=== PATIENT | female | born 1995 | race African-American/Black ===

== ENCOUNTER 2020-03-04 17:07 | Emergency (ER) | payer MEDICAID, SELFPAY ==
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
[2020-03-04 17:16] VITALS: BP 144/91; PULSE 71; RESP 18; TEMP 36.8; O2SAT 98; BMI 31.6
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
[2020-03-04 19:55] VITALS: BP 117/73; PULSE 83; RESP 16; TEMP 36.6; O2SAT 99
== END 2020-03-04 21:54 | disposition home or self-care (01) ==
PROVIDERS: Emergency Provider Emergency Medicine
DX: S06.0X0A Concussion without loss of consciousness, initial encounter (principal); R22.0 Localized swelling, mass and lump, head; G44.309 Post-traumatic headache, unspecified, not intractable; Y04.8XXA Assault by other bodily force, initial encounter; Y93.9 Activity, unspecified; Y92.9 Unspecified place or not applicable; Y99.9 Unspecified external cause status
CPT/HCPCS: 70450; 70486; 99284

== ENCOUNTER 2020-08-06 16:50 | Emergency (ER) | payer MEDICAID, SELFPAY ==
[2020-08-06 17:11] VITALS: BP 120/65; PULSE 86; RESP 16; TEMP 36.6; O2SAT 99; BMI 34.9
--- NOTE | 2020-08-06 17:46 | ED_ITS ---
HPI - Skin/Abscess/Foreign Bdy General Chief complaint: Skin/Abscess/Foreign Body Stated complaint: rash, back pain Time Seen by Provider: 08/06/20 17:46 History of Present Illness HPI narrative: Patient complains of new onset of rash on her neck, the rash on her neck has been coming and going and is very itchy and she has had it multiple times before over past weeks, 2nd complaint is a different kind of rash that is causing small scabbed red spots on her legs and her right arm, they are not painful there is no fever no chills Related Data Previous Rx's Medication Instructions Recorded ibuprofen 800 mg PO Q8H PRN #14 tab 03/04/20 cetirizine 10 mg PO DAILY PRN #14 cap 08/06/20 hydrocortisone 1 appl TOPICAL BID PRN #30 g 08/06/20 ibuprofen 600 mg PO Q6H PRN #20 tab 08/06/20 mupirocin 1 appl TOPICAL BID 5 Days #22 g 08/06/20 Allergies Allergy/AdvReac Type Severity Reaction Status Date / Time No Known Allergies Allergy Verified 03/04/20 17:16 Review of Systems Review of Systems: Positive for skin rash Negatives are no fever no chills no dizziness no weakness no headache no neck pain no joint pains no swelling no difficulty breathing or swallowing no shortness of breath no swelling of the lips tongue or throat PMFSH Past Medical History Source: nursing notes reviewed Medical History No known health problems Social History Social History Smoking Status: Never smoker Smoked in Last 30 Days: No Substance Use Type: Marijuana Any prior treatment program specific to substance use: No Advance Directives: No Advance Directives Information Provided: No Physical Exam Vital Signs: Vital Signs: Last Vital Signs Temp 97.9 F 08/06/20 17:11 Pulse 86 08/06/20 17:11 Resp 16 08/06/20 17:11 BP 120/65 08/06/20 17:11 Pulse Ox 99 08/06/20 17:11 Body Mass Index 34.9 General appearance is no distress The eyes have no discharge or redness The neck has been ordered cardial appearing large blotchy red rash at the base o f the neck, there is no neck swelling, the pharynx is clear with out swelling of lips tongue uvula or pharynx The chest is clear to auscultation bilaterally with full symmetric equal breath sounds The heart rate and rhythm regular no murmur Abdomen soft nontender The back had lower lumbar tenderness bilaterally, paraspinal, no focal bony tenderness, pain is easily reproduced with bending and movement, there is no CVA tenderness, skin is normal in appearance Extremities full range of motion x4 Skin there are small less than dime-sized scabby areas on the left thigh and the right arm with no surrounding erythema nontender no ulceration no wound Course Course Course Narrative: Rashes have 2 different appearances, then rash on the neck looks like hives and description coming and going with lots of itching is consistent with hives the other small excoriated scabby areas on the left thigh and the right arm do not look like hives and they may be aftermath of impetigo so they will be treated with both hydrocortisone and mupirocin creams, Claritin for possible order cardial reaction The back pain is musculoskeletal and recommend she seek physical therapy or chiropractor Discharge Plan Discharge Clinical Impression: Rash, skin Patient Disposition: Home, Self-Care Additional Instructions: It looks like you have 2 different kinds of rash the rash on her neck looks like hives coming and going The small scabbed areas on her legs and arm looked like it might be impetigo so were treating for that with antibiotic cream Follow with primary doctor for further evaluation if my treatment does not cure the rashes For the back Motrin as needed and follow with primary doctor for referral for physical therapy and chiropractor Prescriptions: New mupirocin 2 % ointment 1 appl topical BID 5 Days Qty: 22 RF: 0 ibuprofen 600 mg tablet 600 mg PO Q6H PRN (Reason: pain) Qty: 20 RF: 0 cetirizine 10 mg capsule 10 mg PO DAILY PRN (Reason: Rash and itch) Qty: 14 RF: 0 hydrocortisone 2.5 % cream 1 appl topical BID PRN (Reason: rash) Qty: 30 RF: 0 No Action ibuprofen 800 mg tablet 800 mg PO Q8H PRN (Reason: pain) Qty: 14 RF: 0 Stand Alone Forms: Work/School Release
[2020-08-06] MEDS: Loratadine 10 MG TABLET PO (18:02)
== END 2020-08-06 18:11 | disposition home or self-care (01) ==
PROVIDERS: Emergency Provider Emergency Medicine
DX: R21 Rash and other nonspecific skin eruption (principal); F12.90 Cannabis use, unspecified, uncomplicated; Z79.899 Other long term (current) drug therapy
CPT/HCPCS: 99284

== ENCOUNTER 2022-04-24 02:59 | Emergency (ER) | payer MEDICAID, SELFPAY ==
[2022-04-24 03:10] VITALS: BP 120/76; BP 141/89; PULSE 70; PULSE 72; RESP 18; TEMP 36.8; O2SAT 100; BMI 33.3
--- NOTE | 2022-04-24 03:15 | ECG_ITS ---
Test Reason : CHEST PAIN Blood Pressure : / mmHG Vent. Rate : 080 BPM Atrial Rate : 080 BPM P-R Int : 138 ms QRS Dur : 082 ms QT Int : 386 ms P-R-T Axes : 058 044 043 degrees QTc Int : 445 ms Normal sinus rhythm with sinus arrhythmia Normal ECG No previous ECGs available Referred By: Generic ED Physician Electronically Signed By:KAUR DENSON MD
--- OUTSIDE RECORDS SUMMARY | 2022-04-24 03:36 | XMS_ITS | Continuity of Care Document ---
:1995 Author Organization [facility] Address [address] [place] [id number]- Care Team Providers Name Role Phone Not on Staff, PCP Primary Care Physician Unavailable [place] [facility] [place] - 02/24/[address] [address]- [facility] Attending Physician: Not on Staff, Attending MD Referring Physician: Karlie Kraus MD Allergies, Adverse Reactions, Alerts Substance Reaction Severity Status NKA Active Immunizations Given and Recorded Vaccine Date Status Refusal Reason tetanus/diphtheria/pertussis, acel(Tdap) 12/21/18 Given Not Given Vaccine Date Status Refusal Reason influenza virus vaccine, inactivated 03/08/19 Not Given Parent Or Guardian Refuses Medications Colace Clear 50 mg oral capsule 1 capsule = 50 mg, By Mouth, 2 times a day, # 60 capsule, 0 Refills, Maintenance, 03/10/19 6:14:15 EDT Start Date: 03/10/19 Status: OrderedColace sodium 100 mg oral capsule 100 mg, 1, capsule, By Mouth, 2 times a day, PRN, # 60 capsule, Refills 0, Tot. Refills 0, Maintenance, for constipation, 11/16/18 11:51:05 EDT, Route to Pharmacy Electronically, [id number], [facility]/pharmacy #[id number] Start Date: 11/16/18 Status: Orderedestradiol 0.1 mg/g vaginal cream = 1 Gm, Vaginally, Daily at bedtime, use until vaginal laceration healed, # 42.5 Gm, 0 Refills, Maintenance, 04/17/19 14:18:33 EST Start Date: 04/17/19 Status: Orderedferrous gluconate 324 mg (37.5 mg elemental iron) oral tablet 1 tablet = 324 mg, By Mouth, Daily, # 30 tablet, 0 Refills, Maintenance, 03/10/19 6:13:23 EDT, Tablet Start Date: 03/10/19 Status: OrderedOrtho Micronor 0.35 mg oral tablet 1 tablet = 0.35 mg, By Mouth, Daily, # 60 tablet, 0 Refills, Maintenance, 03/10/19 6:11:47 EDT, Tablet Start Date: 03/10/19 Status: OrderedPrenatal Multivitamins By Mouth, Daily, 0 Refills, Maintenance, 09/07/18 16:48:13 EDT Start Date: 09/07/18 Status: Orderedwitch tasha 50% topical pad 1 each, Topically, 4 times a day, # 48 each, 0 Refills, Maintenance, 04/17/19 14:20:55 EST, 1 each Topically 4 times a day Start Date: 04/17/19 Status: Ordered Problem List Condition Effective Dates Status Health Status Informant Acute low back pain with Active sciatica(Confirmed) 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 [place] Social History Social History Type Response Smoking Status Never (less than 100 in life time) entered on: 08/30/18 Sex
--- OUTSIDE RECORDS SUMMARY | 2022-04-24 03:36 | XMS_ITS | Continuity of Care Document ---
:1995 Author Organization [facility] Address [address] [place] [id number]- Care Team Providers Name Role Phone Not on Staff, PCP Primary Care Physician Unavailable Encounter [facility] Date(s): 05/03/19 - 06/09/[address] [address]- [facility] Attending Physician: Not on Staff, Attending MD Allergies, Adverse Reactions, Alerts Substance Reaction [...] 11/16/18 11:51:05 EDT, Route to Pharmacy Electronically, [id number], [facility]/pharmacy #[id number] Start Date: 11/16/18 Status: Orderedestradiol 0.1 [...] Active Maternal varicella, Active non-immune(Confirmed) 1Pt of [facility] Social History Social History Type Response Smoking Status Never (less than 100 in life time) entered on: 08/30/18 Sex
--- OUTSIDE RECORDS SUMMARY | 2022-04-24 03:36 | XMS_ITS | Continuity of Care Document ---
:1995 Author Organization [facility] Address [address] [place] [id number]- Care Team Providers Name Role Phone Not on Staff, PCP Primary Care Physician Unavailable [place] [facility] [place] - 02/24/[address] [address]- [facility] Attending Physician: Deepika Dejesus Admitting Physician: Deepika Dejesus Referring Physician: Deepika Dejesus Allergies, Adverse Reactions, Alerts Substance Reaction Severity [...] 11/16/18 11:51:05 EDT, Route to Pharmacy Electronically, [id number], [facility]/pharmacy #[id number] Start Date: 11/16/18 Status: Orderedestradiol 0.1 [...] Active Maternal varicella, Active non-immune(Confirmed) 1Pt of [facility] Neu[facility] Social History Social History Type Response Smoking Status Never (less than 100 in life time) entered on: 08/30/18 Sex
--- OUTSIDE RECORDS SUMMARY | 2022-04-24 03:36 | XMS_ITS | Continuity of Care Document ---
:1995 Author Organization [facility] Address [address] [place] [id number]- Care Team Providers Name Role Phone Not on Staff, PCP Primary Care Physician Unavailable [place] [facility] [place]/[address] [address]- [facility] Attending Physician: Not on Staff, Attending MD [...] 11/16/18 11:51:05 EDT, Route to Pharmacy Electronically, [id number], [facility]/pharmacy #[id number] Start Date: 11/16/18 Status: Orderedestradiol 0.1 [...] Active Maternal varicella, Active non-immune(Confirmed) 1[place] [facility] [place] Social History Social History Type Response Smoking Status Never (less than 100 in life time) entered on: 08/30/18 Sex
--- OUTSIDE RECORDS SUMMARY | 2022-04-24 03:36 | XMS_ITS | Continuity of Care Document ---
:1995 Author Organization [facility] Address [address] [place] [id number]- Care Team Providers Name Role Phone Not on Staff, PCP Primary Care Physician Unavailable Encounter [facility] [place] Date(s): 05/18/19 - 05/28/[address] [address]- [facility] Attending Physician: Deepika Dejesus Admitting Physician: Deepika [...] 11/16/18 11:51:05 EDT, Route to Pharmacy Electronically, [id number], [facility]/pharmacy #[id number] Start Date: 11/16/18 Status: Orderedestradiol 0.1 [...]
--- OUTSIDE RECORDS SUMMARY | 2022-04-24 03:37 | XMS_ITS | Continuity of Care Document ---
:1995 Author Organization [facility] Address [address] [place] [id number]- Care Team Providers Name Role Phone Not on Staff, PCP Primary Care Physician Unavailable Encounter [facility] Date(s): 04/17/19 - 06/17/[address] [address]- [facility] Attending Physician: Not on Staff, Attending MD Referring Physician: Iker Conrad MD Allergies, Adverse Reactions, Alerts Substance Reaction [...] 11/16/18 11:51:05 EDT, Route to Pharmacy Electronically, [id number], [facility]/pharmacy #[id number] Start Date: 11/16/18 Status: Orderedestradiol [...] Active Maternal varicella, Active non-immune(Confirmed) [place] [facility] [place] Social History Social History Type Response Smoking Status Never (less than 100 in life time) entered on: 08/30/18 Sex
--- OUTSIDE RECORDS SUMMARY | 2022-04-24 03:37 | XMS_ITS | Continuity of Care Document ---
:1995 Author Organization [facility] Address [address] [place] [id number]- Care Team Providers Name Role Phone Not on Staff, PCP Primary Care Physician Unavailable Encounter [facility] Date(s): 04/25/19 - 06/01/[address] [address]- [facility] Attending Physician: Not on Staff, [...] 11/16/18 11:51:05 EDT, Route to Pharmacy Electronically, [id number], [facility]/pharmacy #[id number] Start Date: 11/16/18 Status: Orderedestradiol [...] Active Maternal varicella, Active non-immune(Confirmed) 1Pt of [facility] [place] [facility] Social History Social History Type Response Smoking Status Never (less than 100 in life time) entered on: 08/30/18 Sex
--- NOTE | 2022-04-24 03:39 | ED.CHESTPAIN ---
HPI - Chest Pain General Chief Complaint: Chest Pain Stated Complaint: PANIC ATTACK PER EMS Time Seen by Provider: 04/24/22 03:35 Source: patient Mode of arrival: ambulatory Limitations: no limitations History of Present Illness HPI narrative: History of anxiety/panic attack woke up from her sleep with chest pain and anxiety with hyperventilation patient friend who was 28 years old of heart condition patient feels same at this time and scared patient denies any substance abuse no known coronary artery disease pain is mid chest sharp in character get worse with taking deep breaths no leg swelling no calf pain no shortness of breath Related Data Previous Rx's Medication Instructions Recorded ibuprofen 800 mg tablet 800 mg PO Q8H PRN pain #14 tabs 03/04/20 cetirizine 10 mg capsule 10 mg PO DAILY PRN Rash and itch 08/06/20 #14 caps hydrocortisone 2.5 % topical cream 1 appl topical BID PRN rash #30 08/06/20 grams ibuprofen 600 mg tablet 600 mg PO Q6H PRN pain #20 tabs 08/06/20 mupirocin 2 % topical ointment 1 appl topical BID 5 days #22 grams 08/06/20 hydroxyzine HCl 25 mg tablet 25 mg PO Q6-8H PRN anxiety #20 tabs 04/24/22 Allergies Allergy/AdvReac Type Severity Reaction Status Date / Time No Known Allergies Allergy Verified 03/04/20 17:16 Review of Systems Review of Systems: Yes all other systems are reviewed and are negative [facility] Past Medical History Medical History No known health problems Social History Social History Substance Use Type: Marijuana Advance Directives: No Advance Directives Information Provided: No Physical Exam Vital Signs: Vital Signs: Last Vital Signs Temp 98.2 F 04/24/22 03:10 Pulse 70 04/24/22 03:10 Resp 18 04/24/22 03:10 BP 141/89 H 04/24/22 03:10 Pulse Ox 100 04/24/22 03:10 O2 Del Method 04/24/22 03:10 BMI result Body Mass Index 33.3 Appearance: Alert. Oriented X3. Anxious, tearful ENT: Pharynx normal. Oral Mucosa moist Neck: Normal inspection. Neck supple. CVS: Normal heart rate and rhythm. Pulses normal. Respiratory: No respiratory distress. Equal air entry bilateral, no wheezing/rales/rhonchi Abdomen: Soft and nontender. Bowel sounds are present, Skin: Skin warm and dry. Normal skin color. Normal skin turgor. Extremities: No lower extremity edema. No calf tenderness Neuro: Oriented X 3. No motor deficit. Medications Administered Discontinued Medications Generic Name Dose Route Start Last Admin Trade Name Jay PRN Reason Stop Dose Admin Lorazepam 1 mg 04/24/22 03:39 04/24/22 03:57 Lorazepam 1 Mg Tablet PO 04/24/22 03:40 1 mg ONCE ONE Administration MDM - Chest Pain MDM Narrative Medical decision making narrative: Patient with anxiety atypical chest pain heart score of 0 troponin negative EKG with any ischemic changes D-dimer negative for PE will discharge patient Differential Diagnosis Differential diagnosis: Likely pneumothorax, atypical chest pain and costochondritis Lab Data Attestation: I reviewed the patient's lab results. Result diagrams: 04/24/22 03:52 04/24/22 03:52 Labs: Lab Results 04/24/22 04/24/22 04/24/22 Range/Units 03:51 03:51 03:52 WBC 10.2 (4.8-10.8) X10*3/uL RBC 4.25 (4.20-5.50) X10*6/uL Hgb 13.2 (12.0-16.0) g/dl Hct 38.1 (37.0-47.0) % MCV 89.6 (80.0-98.0) fL MCH 31.1 (27.0-33.0) pg MCHC 34.6 (31.0-35.0) g/dl RDW 11.7 (11.0-16.0) % Plt Count 273 (160-400) X10*3/uL MPV 8.8 L (9.4-12.3) fL Immature Gran % (Auto) 0.3 (0.0-0.4) % Neut % (Auto) 66.6 (45-73) % Lymph % (Auto) 23.6 (20-40) % [place] % (Auto) 7.3 (2-11) % Eos % (Auto) 1.9 (0-4) % Baso % (Auto) 0.3 (0-2) % Lymph # (Auto) 2.4 (1.2-4.9) X10*3/uL [place] # (Auto) 0.7 (0.1-1.2) X10*3/uL Eos # (Auto) 0.2 (0.0-0.4) X10*3/uL Baso # (Auto) 0.0 (0.0-0.2) X10*3/uL Abs Immat Gran (auto) 0.03 (0.00-0.03) X10*3/uL Absolute Neuts (auto) 6.8 (2.0-8.3) x10*3/uL Absolute Nucleated RBC 0.000 (0.0-0.012) X10*3/uL Nucleated RBC % (auto) 0.0 (0.0-0.2) /100WBC D-Dimer High Sensitivty 171 NG/ML Sodium (135-145) mmol/L Potassium (3.3-5.1) mmol/L Chloride (96-108) mmol/L Carbon Dioxide (22-29) mmol/L Anion Gap (12-20) BUN (9-16) mg/dL Creatinine (0.5-1.4) mg/dL Estim Creat Clear Calc Estimated GFR Random Glucose (60-115) mg/dL Calcium (8.4-10.2) mg/dL Troponin I High Sens < 3.5 (<3.5-17.0) ng/L 04/24/22 Range/Units 03:52 WBC (4.8-10.8) X10*3/uL RBC (4.20-5.50) X10*6/uL Hgb (12.0-16.0) g/dl Hct (37.0-47.0) % MCV (80.0-98.0) fL MCH (27.0-33.0) pg MCHC (31.0-35.0) g/dl RDW (11.0-16.0) % Plt Count (160-400) X10*3/uL MPV (9.4-12.3) fL Immature Gran % (Auto) (0.0-0.4) % Neut % (Auto) (45-73) % Lymph % (Auto) (20-40) % [place] % (Auto) (2-11) % Eos % (Auto) (0-4) % Baso % (Auto) (0-2) % Lymph # (Auto) (1.2-4.9) X10*3/uL [place] # (Auto) (0.1-1.2) X10*3/uL Eos # (Auto) (0.0-0.4) X10*3/uL Baso # (Auto) (0.0-0.2) X10*3/uL Abs Immat Gran (auto) (0.00-0.03) X10*3/uL Absolute Neuts (auto) (2.0-8.3) x10*3/uL Absolute Nucleated RBC (0.0-0.012) X10*3/uL Nucleated RBC % (auto) (0.0-0.2) /100WBC D-Dimer High Sensitivty NG/ML Sodium 141 (135-145) mmol/L Potassium 3.7 (3.3-5.1) mmol/L Chloride 107 (96-108) mmol/L Carbon Dioxide 24 (22-29) mmol/L Anion Gap 14 (12-20) BUN 12 (9-16) mg/dL Creatinine 0.80 (0.5-1.4) mg/dL Estim Creat Clear Calc 120.6 Estimated GFR > 60 Random Glucose 89 (60-115) mg/dL Calcium 9.6 (8.4-10.2) mg/dL Troponin I High Sens (<3.5-17.0) ng/L ECG Data ECG #1: Attestation: I personally reviewed and interpreted this ECG as follows: Interpretation: Normal sinus rhythm heart rate 80 beats per minute normal interval normal axis no acute ST-T changes no acute skin impression normal EKG Discharge Plan Discharge Clinical Impression: Atypical chest pain, Anxiety Patient Disposition: Home, Self-Care Instructions: Noncardiac Chest Pain (ED), Anxiety (ED) Additional Instructions: Rest at home Medication for anxiety as prescribed Follow with PCP Prescriptions: New hydroxyzine HCl 25 mg tablet 25 mg PO Q6-8H PRN (Reason: anxiety) Qty: 20 0RF No Action ibuprofen 800 mg tablet 800 mg PO Q8H PRN (Reason: pain) Qty: 14 0RF mupirocin 2 % ointment 1 appl topical BID 5 Days Qty: 22 0RF ibuprofen 600 mg tablet 600 mg PO Q6H PRN (Reason: pain) Qty: 20 0RF cetirizine 10 mg capsule 10 mg PO DAILY PRN (Reason: Rash and itch) Qty: 14 0RF hydrocortisone 2.5 % cream 1 appl topical BID PRN (Reason: rash) Qty: 30 0RF Interventions: ED Discharge Assessment Last Done: 04/24/22 05:25 Discharge Date/Time: 04/24/22 05:26
[2022-04-24 03:57] LABS: Basophils Percent Auto 0.3 % (0-2); Eosinophils Absolute Auto 0.2 X10*3/uL (0.0-0.4); Eosinophils Percent Auto 1.9 % (0-4); Hematocrit 38.1 % (37.0-47.0); Hemoglobin 13.2 g/dl (12.0-16.0); Imm Gran Abs Auto 0.03 X10*3/uL (0.00-0.03); Imm Gran Pct Auto 0.3 % (0.0-0.4); Lymphocytes Absolute Auto 2.4 X10*3/uL (1.2-4.9); Lymphocytes Percent Auto 23.6 % (20-40); MANUAL DIFF FLAG NO; Mean Corpuscular HGB Conc 34.6 g/dl (31.0-35.0); Mean Corpuscular Hemoglobin 31.1 pg (27.0-33.0); Mean Corpuscular Volume 89.6 fL (80.0-98.0); Mean Platelet Volume 8.8 fL (9.4-12.3); Monocytes Absolute Auto 0.7 X10*3/uL (0.1-1.2); Monocytes Percent Auto 7.3 % (2-11); Neutrophils Absolute Auto 6.8 x10*3/uL (2.0-8.3); Neutrophils Percent Auto 66.6 % (45-73); Platelet Count 273 X10*3/uL (160-400); Red Blood Count 4.25 X10*6/uL (4.20-5.50); Red Cell Distribution Width 11.7 % (11.0-16.0); White Blood Count 10.2 X10*3/uL (4.8-10.8)
[2022-04-24] MEDS: LORazepam 1 MG TABLET PO (03:57)
--- NOTE | 2022-04-24 03:58 | PC.NURSE ---
pt medicated according to MAR. pt's significant other at bedside at this time
[2022-04-24 04:14] LABS: Anion Gap 14 (12-20); Blood Urea Nitrogen 12 mg/dL (9-16); Calcium 9.6 mg/dL (8.4-10.2); Carbon Dioxide 24 mmol/L (22-29); Chloride 107 mmol/L (96-108); Creatinine Clr Calc Pharmacy 120.6; Estimated Glomerular Filt Rate > 60; Glucose Random 89 mg/dL (60-115); Potassium 3.7 mmol/L (3.3-5.1); Sodium 141 mmol/L (135-145)
[2022-04-24 04:21] LABS: Troponin-I High Sensitivity < 3.5 ng/L (<3.5-17.0)
[2022-04-24 04:23] LABS: D Dimer High Sensitivity 171 NG/ML
== END 2022-04-24 05:26 | disposition home or self-care (01) ==
PROVIDERS: Emergency Provider Internal Medicine
DX: R07.89 Other chest pain (principal); F41.9 Anxiety disorder, unspecified
CPT/HCPCS: 36415; 80048; 84484; 85025; 85379; 93005; 99283

== ENCOUNTER 2024-04-10 11:31 | Emergency (ER) | payer MEDICAID, SELFPAY ==
[2024-04-10 12:02] VITALS: BP 121/82; PULSE 75; RESP 20; TEMP 37.1; O2SAT 100; BMI 35.3
--- NOTE | 2024-04-10 12:05 | ED.GENADULT ---
HPI - General Adult General Chief complaint: Nausea/Vomiting/Diarrhea Stated complaint: migraine, food poisoning Source: patient Mode of arrival: ambulatory Limitations: no limitations History of Present Illness ED Provider: Lorelei Hartman PA-C HPI narrative: Patient is a 28 year old assigned female at with no reported medical history presenting to the emergency department today with nausea, vomiting, and a migraine. Patient states that she had some left over [place] food that contained fish and she is unsure if it was refrigerated properly or not. Patient states after she ingested that food - she began to have a migraine headache with nausea and vomiting. Patient denies any dizziness, lightheadedness, abdominal pain, fever, chills, blurry vision, double vision, loss of vision, chest pain, difficulty breathing, shortness of breath, back pain, night sweats, pain with urination, increased urinary frequency, increased urinary urgency, blood in her urine or stool, syncope or a near syncopal episode, recent trauma or falls, bowel incontinence, bladder incontinence, or any other complaints at this time. Relieving factors: none Exacerbating factors: none Associated symptoms: headaches and nausea/vomiting Treatments prior to arrival: none Related Data Previous Rx's ?Medication ?Instructions ?Recorded ibuprofen 800 mg tablet 800 mg PO Q8H PRN pain #14 tabs 03/04/20 cetirizine 10 mg capsule 10 mg PO DAILY PRN Rash and itch 08/06/20 #14 caps hydrocortisone 2.5 % topical cream 1 appl topical BID PRN rash #30 08/06/20 grams ibuprofen 600 mg tablet 600 mg PO Q6H PRN pain #20 tabs 08/06/20 mupirocin 2 % topical ointment 1 appl topical BID 5 days #22 grams 08/06/20 hydroxyzine HCl 25 mg tablet 25 mg PO Q6-8H PRN anxiety #20 tabs 04/24/22 Allergies Allergy/AdvReac Type Severity Reaction Status Date / Time No Known Allergies Allergy Verified 04/10/24 12:05 Review of Systems Constitutional: Constitutional: Reports no additional constitutional complaints, Denies chills, Denies fever(s), Reports headache(s) and Denies night sweats Eyes: Eyes: Reports no additional eye complaints, Denies blurry vision, Denies change in vision, Denies diplopia, Denies eye discharge, Denies loss of vision and Denies eye pain ENT: Denies dizziness and Reports headache(s) Cardiovascular: Cardiovascular: Reports no additional cardiovascular complaints, Denies chest pain, Denies lightheadedness, Denies Loss of Consciousness and Denies dyspnea Respiratory: Respiratory: Reports no additional respiratory complaints and Denies dyspnea Gastrointestinal: Gastrointestinal: Reports no additional gastrointestinal complaints, Denies abdominal pain, Denies melena, Denies hematochezia, Denies change in bowel habits, Denies change in stool character, Reports nausea and Reports vomiting Genitourinary: Genitourinary: Denies hematuria, Denies urinary frequency, Denies dysuria, Denies urinary incontinence, Denies urinary hesitancy and Denies urinary urgency Musculoskeletal: Musculoskeletal: Reports no additional musculoskeletal complaints, Denies numbness and Denies tingling Neurologic: Denies dizziness, Reports headache(s), Denies loss of vision, Denies numbness and Denies tingling Psychiatric: Psychiatric: Reports no additional psychiatric complaints Endocrine: Endocrine: Reports no additional endocrine complaints Hematologic/Lymphatic: Hematologic/Lymphatic: Reports no additional hematologic/lymphatic complaints Allergic/Immunologic: Allergic/Immunologic: Reports no additional allergic/immunologic complaints PMFSH Past Medical History Attestation statement: The following information was validated with the patient. Source: old records reviewed and nursing notes reviewed Medical History No known health problems Social History Social History Substance Use Type: Marijuana Advance Directives: No Advance Directives Information Provided: No Do you have a plan to hurt others: No Plan Physical Exam ED Vital Signs: Vital Signs - 24 hr 04/10/24 12:02 Temperature 98.8 F Pulse Rate 75 Respiratory Rate 20 Blood Pressure 121/82 Pulse Oximetry 100 Oxygen Delivery Method Room Air BMI result Body Mass Index 35.3 Const General: cooperative, no acute distress, alert and awake Nutritional Appearance: well nourished Orientation/consciousness: patient oriented x3 Limitations: no limitations HENMT Head: Yes normal to inspection and Yes atraumatic Ears: hearing grossly normal bilaterally and external ears normal General nose exam: Normal external nose present, no nasal discharge noted and no epistaxis Face and sinus: Yes normal facial exam, No abrasion and No laceration Mouth: Normal oral and palatal mucosa present, no drooling and no muffled voice Eyes General: appearance normal, both eyes and all related structures Periorbital: periorbital findings normal Eyelids: Yes eyelids normal Conjunctivae: conjunctivae normal Pupils: Equal, round and reactive pupils present EOM: EOMs intact bilaterally Neck Neck: Yes normal visual inspection, Yes full ROM and Yes no lymphadenopathy Chest Chest palpation & inspection: normal inspection of the chest Resp Effort & Inspection: normal respiratory effort and able to speak in complete sentences GI Inspection: Yes normal to inspection Neuro General: patient oriented x3 and moves all extremities Cranial nerves: Yes Equal, round and reactive pupils present Cognition (Neuro): normal cognition Extrem General: Yes normal to inspection, Yes full ROM and Yes capillary refill normal Psych Appearance: grossly normal Mental Status: mental status grossly normal Affect: normal affect Attitude: cooperative Thought process: Normal thought process present Thought content: Normal thought content present Insight: Good insight present (Psych) Course Course Course Narrative: RME performed by Lorelei Hartman PA-C. Patient is a 28 year old assigned female at presenting to the emergency department with nausea, vomiting, and a headache. Patient states she ate leftover [place] food that had fish and is not sure if it was refrigerated or not. Detailed physical exam and review of systems are deferred to the plate mill mill hand. Labs ordered. Patient placed back in the waiting room pending room availability and results. Medical Decision Making Medical Decision Making MDM Narrative: Patient is a 28 year old assigned female at with no reported medical history presenting to the emergency department today with headache, nausea, and vomiting. Patient's limited physical exam performed in triage was unremarkable. Patient's blood work was showed a minimal elevation in the WBC count but were otherwise unremarkable. Patient left the department without completing treatment. Patient left the department before myself or any of the other emergency department clinicians could explain to or review with the patient; physical exam findings, test results, need or lack there of for additional testing, need or lack there of for a procedure to be performed, need or lack there of for hospital admission / transfer, need or lack there of for prescription medication, treatment options, or a treatment plan. Differential Diagnosis Differential Diagnoses: The differential diagnosis associated with the presentation includes Food poisoning Enteritis Nausea Vomiting Migraine headache Admission/Observation Consideration of admission/observation: Escalation of care including admission/observation considered Patient would have been admitted to the hospital had she completed her work up and it had any findings where hospital admission was appropriate, her clinical presentation warranted hospital admission, had myself or any other emergency slot machine department floorperson had the ability to discuss need or lack there of for hospital admission, and the patient hadn't left the department without completing treatment. Lab Data [facility] Lab Attestation statement: I reviewed the patient's lab results. My interpretation of these results are in the [facility] Rationale portion of this note. 04/10/24 12:30 04/10/24 12:30 Labs: Lab Results 04/10/24 Range/Units 12:30 WBC 11.3 H (4.8-10.8) X10*3/uL RBC 4.50 (4.20-5.50) X10*6/uL Hgb 13.9 (12.0-16.0) g/dl Hct 41.1 (37.0-47.0) % MCV 91.3 (80.0-98.0) fL MCH 30.9 (27.0-33.0) pg MCHC 33.8 (31.0-35.0) g/dl RDW 12.2 (11.0-16.0) % Plt Count 295 (160-400) X10*3/uL MPV 8.8 L (9.4-12.3) fL Immature Gran % (Auto) 0.5 H (0.0-0.4) % Neut % (Auto) 71.2 (45-73) % Lymph % (Auto) 19.5 L (20-40) % [place] % (Auto) 6.6 (2-11) % Eos % (Auto) 1.9 (0-4) % Baso % (Auto) 0.3 (0-2) % Lymph # (Auto) 2.2 (1.2-4.9) X10*3/uL [place] # (Auto) 0.8 (0.1-1.2) X10*3/uL Eos # (Auto) 0.2 (0.0-0.4) X10*3/uL Baso # (Auto) 0.0 (0.0-0.2) X10*3/uL Abs Immat Gran (auto) 0.06 H (0.00-0.03) X10*3/uL Absolute Neuts (auto) 8.1 (2.0-8.3) x10*3/uL Absolute Nucleated RBC 0.000 (0.0-0.012) X10*3/uL Nucleated RBC % (auto) 0.0 (0.0-0.2) /100WBC Sodium 140 (135-145) mmol/L Potassium 3.8 (3.3-5.1) mmol/L Chloride 107 (96-108) mmol/L Carbon Dioxide 25 (22-29) mmol/L Anion Gap 12 (12-20) BUN 10 (9-16) mg/dL Creatinine 0.75 (0.5-1.4) mg/dL Estim Creat Clear Calc 130.4 Estimated GFR > 60 Random Glucose 110 (60-115) mg/dL Calcium 9.2 (8.4-10.2) mg/dL Magnesium 1.8 (1.6-2.6) mg/dL Total Bilirubin 0.3 (0.0-1.0) mg/dL AST 17 (5-31) U/L ALT 11 (0-31) U/L Alkaline Phosphatase 94 (39-117) U/L Total Protein 7.6 (6.5-8.0) g/dL Albumin 3.9 (3.5-5.0) g/dL Beta HCG, Quant < 2 mIU/mL Influenza Type A (PCR) NEGATIVE (Negative) Influenza Type B (PCR) NEGATIVE (Negative) RSV RNA Qual (PCR) NEGATIVE (Negative) SARS-CoV-2 RNA (RT-PCR) NEGATIVE (Negative) Discharge Plan Discharge Clinical Impression: Nausea & vomiting, Headache Patient Disposition: Left W/O Completing Treatment Prescriptions: No Action ibuprofen 800 mg tablet 800 mg PO Q8H PRN (Reason: pain) Qty: 14 0RF mupirocin 2 % ointment 1 appl topical BID 5 Days Qty: 22 0RF ibuprofen 600 mg tablet 600 mg PO Q6H PRN (Reason: pain) Qty: 20 0RF cetirizine 10 mg capsule 10 mg PO DAILY PRN (Reason: Rash and itch) Qty: 14 0RF hydrocortisone 2.5 % cream 1 appl topical BID PRN (Reason: rash) Qty: 30 0RF hydroxyzine HCl 25 mg tablet 25 mg PO Q6-8H PRN (Reason: anxiety) Qty: 20 0RF Discharge Date/Time: 04/10/24 19:08
[2024-04-10 12:36] LABS: MANUAL DIFF FLAG NO
[2024-04-10 12:38] LABS: Basophils Percent Auto 0.3 % (0-2); Eosinophils Absolute Auto 0.2 X10*3/uL (0.0-0.4); Eosinophils Percent Auto 1.9 % (0-4); Hematocrit 41.1 % (37.0-47.0); Hemoglobin 13.9 g/dl (12.0-16.0); Imm Gran Abs Auto 0.06 X10*3/uL (0.00-0.03); Imm Gran Pct Auto 0.5 % (0.0-0.4); Lymphocytes Absolute Auto 2.2 X10*3/uL (1.2-4.9); Lymphocytes Percent Auto 19.5 % (20-40); Mean Corpuscular HGB Conc 33.8 g/dl (31.0-35.0); Mean Corpuscular Hemoglobin 30.9 pg (27.0-33.0); Mean Corpuscular Volume 91.3 fL (80.0-98.0); Mean Platelet Volume 8.8 fL (9.4-12.3); Monocytes Absolute Auto 0.8 X10*3/uL (0.1-1.2); Monocytes Percent Auto 6.6 % (2-11); Neutrophils Absolute Auto 8.1 x10*3/uL (2.0-8.3); Neutrophils Percent Auto 71.2 % (45-73); Platelet Count 295 X10*3/uL (160-400); Red Cell Distribution Width 12.2 % (11.0-16.0); White Blood Count 11.3 X10*3/uL (4.8-10.8)
[2024-04-10 12:58] LABS: Alanine Aminotransferase 11 U/L (0-31); Albumin Level 3.9 g/dL (3.5-5.0); Alkaline Phosphatase 94 U/L (39-117); Anion Gap 12 (12-20); Aspartate Amino Transferase 17 U/L (5-31); Bilirubin Total 0.3 mg/dL (0.0-1.0); Blood Urea Nitrogen 10 mg/dL (9-16); Calcium 9.2 mg/dL (8.4-10.2); Carbon Dioxide 25 mmol/L (22-29); Chloride 107 mmol/L (96-108); Creatinine Clr Calc Pharmacy 130.4; Estimated Glomerular Filt Rate > 60; Glucose Random 110 mg/dL (60-115); HCG Quantitative < 2 mIU/mL; Magnesium 1.8 mg/dL (1.6-2.6); Potassium 3.8 mmol/L (3.3-5.1); Sodium 140 mmol/L (135-145); Total Protein 7.6 g/dL (6.5-8.0)
[2024-04-10 13:24] LABS: Influenza A PCR NEGATIVE (Negative); Influenza B PCR NEGATIVE (Negative); Resp Syncy Virus RNA Qual PCR NEGATIVE (Negative); SARS COV2 PCR INHOUSE NEGATIVE (Negative)
== END 2024-04-10 19:08 | disposition left against medical advice (07) ==
PROVIDERS: Physician Assistant Medical; Emergency Provider Emergency Medicine
DX: G43.909 Migraine, unspecified, not intractable, without status migrainosus (principal); R11.2 Nausea with vomiting, unspecified; Z03.818 Encounter for observation for suspected exposure to other biological agents ruled out; Z79.899 Other long term (current) drug therapy
CPT/HCPCS: 0241U; 80053; 83735; 84702; 85025; 99281; 99283

== ENCOUNTER → 2024-10-25 14:20 | Outpatient (BNVA) | payer SELFPAY | PROVIDERS: Visit Provider Physician Assistant Medical | DX: Z02.1 Encounter for pre-employment examination (principal) ==